=== PATIENT | female | born 1980 | race Asian ===

== ENCOUNTER 2017-09-29 00:07 | Emergency (ER) | payer MEDICAID ==
[~2017-09-29] VITALS: Ht 157.5 cm; Wt 59.0 kg
[~2017-09-29 00:07] MED LIST: APAP/HYDROCODON1 T13 PO; COL100 PO; DULERA1 AR2 INH; FLA500 PO; LAC PO; LEVAQUIN750 MG PO; OMEPRAZOLE DR20 M1 PO; PROVENTIL0.09 MG/A1 INH; RANITIDINE HCL150 MG PO; TYLENOL EXTRA500 M2 PO
[2017-09-29 00:44] VITALS: Ht 157.5 cm; Wt 59.0 kg
[2017-09-29 04:47] VITALS: BP 150/92
== END 2017-09-29 04:47 | disposition other institution (70) ==
LOC: ED 00:07
DX: M79.605 Pain in left leg (principal); I10 Essential (primary) hypertension; J45.909 Unspecified asthma, uncomplicated; K21.9 Gastro-esophageal reflux disease without esophagitis
CPT/HCPCS: 85378; J2060; J7030; Q0092